=== PATIENT | female | born 1995 | race Caucasian/White ===

== ENCOUNTER 2016-11-21 18:38 | Emergency (ER) | payer SELFPAY ==
[~2016-11-21] VITALS: Ht 172.7 cm; Wt 71.5 kg
[2016-11-21] MEDS ORDERED: TRICTAB PO (19:12)
[2016-11-21 19:13] VITALS: BP 104/55; PULSE 78; RESP 18; TEMP 98.3; O2SAT 98
[2016-11-21 19:32] LABS: BLOOD, URINE MOD (NEG); GLUCOSE,URINE NEG (NEG); KETONE, URINE TRACE mg/dL (NEG); NITRITE,URINE NEG (NEG); PH, URINE 6.5 (5.0-8.5)
[2016-11-21 19:33] LABS: URINE COLOR YELLOW (YELLW/STRAW)
[2016-11-21 19:37] LABS: BACTERIA, URINE MANY /hpf; COMMENT (UR) CULTURE INDICATED; CULTURE IF INDICATED CULTURE INDICATED; SQUAMOUS EPITHELIAL CELL URINE > 8 /hpf (0-5); WBC, URINE INNUM /hpf (0-5)
[2016-11-21 20:12] VITALS: BP 100/46; PULSE 86; RESP 18; O2SAT 99
[2016-11-21] MEDS ORDERED: CEPHALEXIN MONOHYDRATE 500 MG CAP PO ONE (21:00)
--- NOTE | 2016-11-21 21:05 | PD ---
HPI Chief Complaint: Complaint Time Seen by Provider: 21:01 Travel History International Travel<30 days: No Contact w/Intl Traveler<30days: No Traveled to known affect area: No History of Present Illness HPI 21-year-old female presents to the emergency department by private transportation for complaint of one week of dysuria. Patient notes history of frequent urinary tract infections. Symptoms have worsened over the past one to 2 days. No fever or chills. No hematuria. Patient rates discomfort as moderate with urination but mild 2/10 intensity at this time. Patient's last menstrual period was several months ago as she has not had a period since delivering her child 06/2016. Patient breast-feeds daily. Patient denies other concerns or complaints. PFSH Past Medical History Narrative Medical Recurrent urinary tract infections, kidney stones, Diminished Hearing: No Kidney Stones: Yes Immunizations Current: Yes Tetanus Vaccination: Unknown Influenza Vaccination: Yes ?: Not LMP: DELIVERED JUN 28 Past Surgical History Surgical History: No Previous Surgery Social History Alcohol Use: No Tobacco Use: No Substance Use: No Allergies-Medications (Allergen,Severity, Reaction): Coded Allergies: Augmentin (Verified Allergy, Mild, HIVES, 11/21/16) Motrin (Verified Allergy, Mild, HIVES, 11/21/16) Reported Meds & Prescriptions Reported Meds & Active Scripts Active Pyridium (Phenazopyridine HCl) 100 Mg Tab 100 Mg PO Q8H PRN Keflex (Cephalexin) 500 Mg Cap 500 Mg PO Q6H 7 Days Reported ( Vit-Ferrous Fumarate) 1 Tab Tab 1 Tab PO DAILY Review of Systems Except as stated in HPI: all other systems reviewed are Neg General / Constitutional: No: Fever, Chills HENT: No: Congestion Cardiovascular: No: Chest Pain or Discomfort Respiratory: No: Shortness of Breath Gastrointestinal: No: Nausea, Vomiting, Abdominal Pain Genitourinary: Positive: Dysuria, Flank Pain (mild), No: Discharge, Vaginal Bleeding Skin: No Rash Psychiatric: No: Anxiety Endocrine: No: Heat Intolerance Hematologic/Lymphatic: No: Easy Bruising Physical Exam Narrative GENERAL: Well-developed well-nourished female in no acute distress no respiratory distress SKIN: Warm and dry. HEAD: Normocephalic. EYES: No scleral icterus. No injection or drainage. NECK: Supple, trachea midline. No JVD or lymphadenopathy. CARDIOVASCULAR: Regular rate and rhythm without murmurs, gallops, or rubs. RESPIRATORY: Breath sounds equal bilaterally. No accessory muscle use. GASTROINTESTINAL: Abdomen soft, non-tender, nondistended. MUSCULOSKELETAL: No cyanosis, or edema. BACK: Nontender without obvious deformity. Mild right-sided CVA tenderness to percussion that she rates 1-2/10 in intensity. Data Data Last Documented VS Vital Signs Date Time Temp Pulse Resp B/P Pulse Ox O2 Delivery O2 Flow Rate FiO2 11/21/16 21:43 67 18 106/79 99 11/21/16 20:12 Room Air 11/21/16 19:13 98.3 Orders Urinalysis - C+S If Indicated (11/21/16 19:20) Ed Urine Pregnancytest Poc (11/21/16 19:20) Urine Culture (11/21/16 19:15) Cephalexin (Keflex) (11/21/16 21:00) Labs Laboratory Tests Test 11/21/16 19:15 Urine Color YELLOW Urine Turbidity CLOUDY Urine pH 6.5 Urine Specific [place] 1.020 Urine Protein 30 mg/dL Urine Glucose (UA) NEG mg/dL Urine Ketones TRACE mg/dL Urine Occult Blood MOD Urine Nitrite NEG Urine Bilirubin NEG Urine Leukocyte Esterase LARGE Urine RBC 10-14 /hpf Urine WBC INNUM /hpf Urine Squamous Epithelial > 8 /hpf Cells Urine Bacteria MANY /hpf Microscopic Urinalysis Comment CULTURE INDICATED MDM Medical Decision Making Medical Screen Exam Complete: Yes Emergency Medical Condition: Yes Medical Record Reviewed: Yes Interpretation(s) Urinalysis positive leukocyte Estrace positive for white blood cells positive red blood cells positive for bacteria; culture indicated Gelio-tz-sytu hCG: Negative Differential Diagnosis UTI, pyelonephritis, renal colic, Narrative Course Exam consistent with urinary tract infection patient states pain does not remind her of kidney stone pain and denies any fever chills nausea or vomiting. ; Patient informed the urinalysis is abnormal and consistent with infection. Culture is pending. Patient given first dose of antibiotic. Patient states she typically receives Keflex with good resolution of symptoms and urinary tract infections. First dose of Keflex administered. Diagnosis Primary Impression: UTI (urinary tract infection) Referrals: Primary Care Physician call for appointment Patient Instructions: General Instructions Additional Instructions: Increase fluid hydration Take acetaminophen as needed for fever 100.4F or greater Complete course of antibiotic as prescribed Avoid breast-feeding while taking antibiotic therapy Follow-up with your primary care provider call office to schedule follow-up appointment Return to the emergency department for a concerns or change in condition Med/Other Pt SpecificInfo: Prescription(s) given Scripts Phenazopyridine (Pyridium)100 Mg [id number] Mg PO Q8H PRN (DYSURIA) #6 TAB Ref 0 Prov:Marycarmen Moncada MD 11/21/16 Cephalexin (Keflex)500 Mg [id number] Mg PO Q6H 7 Days Ref 0 Prov:Marycarmen Moncaad MD 11/21/16 Disposition: 01 DISCHARGE HOME Condition: Stable Marycarmen Moncada MD Nov 21, 2016 21:05
[2016-11-21] MEDS ORDERED: CEPH-460 PO (21:09)
[2016-11-21] MEDS ORDERED: PHEN0.4T PO (21:09)
[2016-11-21 21:43] VITALS: BP 106/79
== END 2016-11-21 22:23 | disposition home or self-care (01) ==
LOC: PHED 18:38
DX: N39.0 Urinary tract infection, site not specified (principal); B96.20 Unspecified Escherichia coli [E. coli] as the cause of diseases classified elsewhere; B95.1 Streptococcus, group B, as the cause of diseases classified elsewhere
CPT/HCPCS: 81001; 84703; 87077; 87086; 87147; 87186; 99283

== ENCOUNTER 2017-03-11 18:07 | Emergency (ER) | payer SELFPAY ==
[~2017-03-11] VITALS: Ht 172.7 cm; Wt 66.3 kg
[~2017-03-11 18:07] MED LIST: CEPH-460 PO; PHEN0.4T PO; TRICTAB PO
[2017-03-11 18:17] VITALS: BP 115/59; PULSE 94; RESP 16; TEMP 98.6; O2SAT 100
[2017-03-11 18:38] LABS: GLUCOSE,URINE NEG (NEG); KETONE, URINE NEG (NEG); NITRITE,URINE NEG (NEG); PH, URINE 7.5 (5.0-8.5)
[2017-03-11 18:45] LABS: BLOOD, URINE MOD (NEG); URINE COLOR YELLOW (YELLW/STRAW)
--- NOTE | 2017-03-11 18:46 | PD ---
HPI Chief Complaint: Complaint Time Seen by Provider: 18:30 Travel History International Travel<30 days: No Contact w/Intl Traveler<30days: No Traveled to known affect area: No History of Present Illness HPI 21-year-old female presents to the emergency room for evaluation of dysuria, urgency, frequency, and right flank pain the past one and half weeks. Patient states right flank pain is intermittent because she has kidney stones but over the past few days it has become constant, throbbing. It has brought her to tears. Patient has been taking [id number] Azo and it was helping her symptoms at first but it no longer seems to be working. She reports associated nausea but denies fever, chills, and vomiting. No vaginal symptoms. Last menstrual cycle was 5 months ago. Patient states she has not had a menstrual cycles having her baby that she is breast-feeding every day. Denies chronic medical conditions or daily medications. PFSH Past Medical History Diminished Hearing: No Kidney Stones: Yes Immunizations Current: Yes Tetanus Vaccination: < 5 Years Influenza Vaccination: Yes ?: Unknown LMP: SEP 2015 Past Surgical History Surgical History: No Previous Surgery Social History Alcohol Use: No Tobacco Use: No Substance Use: No Allergies-Medications (Allergen,Severity, Reaction): Coded Allergies: Augmentin (Verified Allergy, Mild, HIVES, 11/21/16) Motrin (Verified Allergy, Mild, HIVES, 11/21/16) Reported Meds & Prescriptions Reported Meds & Active Scripts Active Cipro (Ciprofloxacin HCl) 500 Mg Tab 500 Mg PO BID 7 Days Pyridium (Phenazopyridine HCl) 100 Mg Tab 100 Mg PO Q8H PRN Keflex (Cephalexin) 500 Mg Cap 500 Mg PO Q6H 7 Days Reported ( Vit-Ferrous Fumarate) 1 Tab Tab 1 Tab PO DAILY Review of Systems Except as stated in HPI: all other systems reviewed are Neg Physical Exam Narrative GENERAL: Well-nourished, well-developed female in no acute distress. Afebrile. Ambulatory. SKIN: Focused skin assessment warm/dry. HEAD: Normocephalic. EYES: No scleral icterus. No injection or drainage. NECK: Supple, trachea midline. No JVD or lymphadenopathy. CARDIOVASCULAR: Regular rate and rhythm without murmurs, gallops, or rubs. RESPIRATORY: Breath sounds equal bilaterally. No accessory muscle use. BACK: Nontender without obvious deformity. Severe right-sided CVA tenderness. Data Data Last Documented VS Vital Signs Date Time Temp Pulse Resp B/P Pulse Ox O2 Delivery O2 Flow Rate FiO2 03/11/17 18:17 98.6 94 16 115/59 100 Orders Urinalysis - C+S If Indicated (03/11/17 18:14) Ed Urine Pregnancytest Poc (03/11/17 18:41) Urine Culture (03/11/17 18:18) Complete Blood Count With Diff (03/11/17 18:54) Basic Metabolic Panel (Bmp) (03/11/17 18:54) Ct Abd/Pel W/O Iv Contrast (03/11/17 18:54) Mandatory Outpatient Referral (03/11/17 20:13) Labs Laboratory Tests Test 03/11/17 03/11/17 18:18 19:10 Urine Color YELLOW Urine Turbidity CLOUDY Urine pH 7.5 Urine Specific [place] 1.016 Urine Protein 30 mg/dL Urine Glucose (UA) NEG mg/dL Urine Ketones NEG mg/dL Urine Occult Blood MOD Urine Nitrite NEG Urine Bilirubin NEG Urine Leukocyte Esterase LARGE Urine RBC 25-49 /hpf Urine WBC INNUM /hpf Urine WBC Clumps FEW Urine Squamous Epithelial > 8 /hpf Cells Urine Bacteria FEW /hpf Microscopic Urinalysis Comment CULTURE INDICATED White Blood Count 6.3 TH/MM3 Red Blood Count 4.67 MIL/MM3 Hemoglobin 13.4 GM/DL Hematocrit 39.7 % Mean Corpuscular Volume 85.1 FL Mean Corpuscular Hemoglobin 28.7 PG Mean Corpuscular Hemoglobin 33.8 % Concent Red Cell Distribution Width 12.8 % Platelet Count 242 TH/MM3 Mean Platelet Volume 8.0 FL Neutrophils (%) (Auto) 43.8 % Lymphocytes (%) (Auto) 40.1 % Monocytes (%) (Auto) 10.0 % Eosinophils (%) (Auto) 5.0 % Basophils (%) (Auto) 1.1 % Neutrophils # (Auto) 2.8 TH/MM3 Lymphocytes # (Auto) 2.5 TH/MM3 Monocytes # (Auto) 0.6 TH/MM3 Eosinophils # (Auto) 0.3 TH/MM3 Basophils # (Auto) 0.1 TH/MM3 CBC Comment DIFF FINAL Differential Comment Sodium Level 141 MEQ/L Potassium Level 3.6 MEQ/L Chloride Level 105 MEQ/L Carbon Dioxide Level 29.6 MEQ/L Anion Gap 6 MEQ/L Blood Urea Nitrogen 10 MG/DL Creatinine 0.76 MG/DL Estimat Glomerular Filtration 97 ML/MIN Rate Random Glucose 92 MG/DL Calcium Level 9.1 MG/DL [facility] Medical Decision Making Medical Screen Exam Complete: Yes Emergency Medical Condition: Yes Medical Record Reviewed: Yes Differential Diagnosis Pyelonephritis, UTI, kidney stones Narrative Course -year-old female with a history of recurring UTIs and kidney since presents to the emergency room for evaluation of right flank pain, dysuria, urgency, and frequency for the past one week. Patient denies systemic signs of infection. She has been tolerating food without difficulty. Reports constant right flank pain that has increased in intensity over the past week. Patient states she had a 2 cm stone 5 years ago but has never been able to follow-up because of insurance reasons. Physical exam reveals severe right-sided CVA tenderness. Abdomen soft, nontender. Vital signs stable. UA shows evidence of acute infection. CBC and BMP are unremarkable. CT shows a 2 cm stone with right- sided hydronephrosis. Given chronicity of disease, patient is stable for outpatient follow-up. She was discharged with prescription for Cipro for 7 days to cover for pyelonephritis. Previous cultures show susceptibility to Cipro. Mandatory outpatient referral placed. Patient understands and agrees to plan. Diagnosis Primary Impression: UTI (urinary tract infection) Qualified Code: N30.01 - Acute cystitis with hematuria Additional Impression: Nephrolithiasis Referrals: Marko Moon MD Primary Care Physician Patient Instructions: General Instructions, Kidney Stones (ED), Urinary Tract Infection in Women (ED) Additional Instructions: Rest and drink plenty of fluids. Take Cipro as directed, until gone. Take ibuprofen with food as directed, as needed for pain. Follow-up with urologist. Return to the emergency room for worsening symptoms. Med/Other Pt SpecificInfo: Prescription(s) given Scripts Ciprofloxacin (Cipro)500 Mg [id number] Mg PO BID 7 Days Ref 0 Prov:Damaso Lawson MD 03/11/17 Disposition: 01 DISCHARGE HOME Condition: Stable Karina Cole Mar 11, 2017 18:46
[2017-03-11 18:47] LABS: SQUAMOUS EPITHELIAL CELL URINE > 8 /hpf (0-5); WBC, URINE INNUM /hpf (0-5)
[2017-03-11 18:48] LABS: BACTERIA, URINE FEW /hpf; COMMENT (UR) CULTURE INDICATED; CULTURE IF INDICATED CULTURE INDICATED
[2017-03-11 19:18] LABS: AUTOMATED NEUTROPHIL # 2.8 TH/MM3 (1.8-7.7); BASOPHIL # 0.1 TH/MM3 (0-0.2); BASOPHIL % 1.1 % (0.0-2.0); EOSINOPHIL # 0.3 TH/MM3 (0-0.4); HEMATOCRIT 39.7 % (35.0-46.0); HEMO FLAGS DIFF FINAL; LYMPH % 40.1 % (9.0-44.0); LYMPHOCYTE # 2.5 TH/MM3 (1.0-4.8); MEAN CELL VOLUME 85.1 FL (80.0-100.0); MEAN CORPUSCULAR HEMOGLOBIN 28.7 PG (27.0-34.0); MEAN CORPUSCULAR HGB CONC 33.8 % (32.0-36.0); NEUT % 43.8 % (16.0-70.0); PLATELET COUNT 242 TH/MM3 (150-450); RED BLOOD COUNT 4.67 MIL/MM3 (4.00-5.30); RED CELL DISTRIBUTION WIDTH 12.8 % (11.6-17.2); WHITE BLOOD COUNT 6.3 TH/MM3 (4.0-11.0)
[2017-03-11 19:27] LABS: POTASSIUM 3.6 MEQ/L (3.5-5.1)
[2017-03-11 19:30] LABS: BICARBONATE 29.6 MEQ/L (21.0-32.0)
--- NOTE | 2017-03-11 19:42 | RADRPT ---
EXAM DATE/TIME: 03/11/2017 19:12 [facility] COMPARISON: No previous studies available for comparison. INDICATIONS : Right flank pain. Dysuria. ORAL CONTRAST: No oral contrast ingested. RADIATION DOSE: 10.26 CTDIvol (mGy) MEDICAL HISTORY : Renal calculi. SURGICAL HISTORY : None. ENCOUNTER: Initial ACUITY: 2 weeks PAIN SCALE: 5/10 LOCATION: Right flank TECHNIQUE: Volumetric scanning of the abdomen and pelvis was performed. Using automated exposure control and ad justment of the mA and/or kV according to patient size, radiation dose was kept as low as reasonably achievable to obtain optimal diagnostic quality images. DICOM format image data is available electro nically for review and comparison. FINDINGS: LOWER LUNGS: The visualized lower lungs are clear. LIVER: Homogeneous density without lesion. There is no dilation of the biliary tree. No calcified gallston es. SPLEEN: Normal size without lesion. PANCREAS: Within normal limits. KIDNEYS: Normal in size and shape. There is no mass or hydronephrosis on the left. Numerous bilateral renal c alculi measuring 2-5 mm in size. Large calculus in the right renal pelvis measuring 2.2 x 1.5 cm. The re is also slight prominence of the ureter more distally but does appear to taper to normal size. Mor e distal obstructing ureteral calculus is not seen. ADRENAL GLANDS: Within normal limits. VASCULAR: There is no aortic aneurysm. BOWEL/MESENTERY: The stomach, small bowel, and colon demonstrate no acute abnormality. There is no free intraperitone al air or fluid. ABDOMINAL WALL: Within normal limits. RETROPERITONEUM: There is no lymphadenopathy. BLADDER: No wall thickening or mass. REPRODUCTIVE: Within normal limits. INGUINAL: There is no lymphadenopathy or hernia. MUSCULOSKELETAL: Within normal limits for patient age. CONCLUSION: 1. Numerous bilateral nonobstructing renal calculi. 2. Large calculus in the right renal pelvis measuring 22 x 15 mm. There is hydronephrosis of the righ t kidney. Jag Rodriguez MD on March 11, 2017 at 19:36 Board Certified Radiologist. This report was verified electronically.
[2017-03-11] MEDS ORDERED: CIPR-9 PO (20:05)
== END 2017-03-11 20:25 | disposition home or self-care (01) ==
LOC: PHEFT 18:07
DX: N30.01 Acute cystitis with hematuria (principal); B96.20 Unspecified Escherichia coli [E. coli] as the cause of diseases classified elsewhere; N13.2 Hydronephrosis with renal and ureteral calculous obstruction
CPT/HCPCS: 74176; 80048; 81001; 84703; 85025; 87077; 87086; 87186

== ENCOUNTER 2017-03-15 13:18 | Observation (INO) | payer SELFPAY ==
[~2017-03-15] VITALS: Ht 172.7 cm; Wt 67.0 kg
[~2017-03-15 13:18] MED LIST changes: +CIPR-9 PO
[2017-03-15 13:20] VITALS: BP 138/65; PULSE 88; RESP 18; TEMP 98.4; O2SAT 99
[2017-03-15] MEDS ORDERED: SODIUM CHLOR 0.9% 1000 ML INJ 1,000 ML IV ONE (14:25)
[2017-03-15] MEDS ORDERED: SODIUM CHLORIDE 0.9% FLUSH 10 ML FLUSH IVF PRN (14:30)
[2017-03-15] MEDS ORDERED: MORPHINE SULFATE 4 MG/ML INJ IV PUSH ONE (14:30)
[2017-03-15] MEDS ORDERED: ONDANSETRON HCL 4 MG/2 ML VIAL IVP ONE (14:30)
--- NOTE | 2017-03-15 14:30 | PD ---
HPI Chief Complaint: Flank/Kidney Pain Time Seen by Provider: 14:28 Travel History International Travel<30 days: No Contact w/Intl Traveler<30days: No Traveled to known affect area: No History of Present Illness HPI 21-year-old female presents to the emergency department for reevaluation of right flank pain. Patient was seen 4 days ago at [facility] in the emergency department. She was found to have a large 22 mm x 15 mm calculus in the right renal pelvis with hydronephrosis of the right kidney. She is also found to have a urinary tract infection was discharged prescription for ciprofloxacin. Patient states she was not discharged with any pain medication at that time. Since then, the pain has become more severe. She also states that she was vomiting yesterday. The patient was given a mandatory outpatient referral for urology, but states she has tried to call and follow-up, but has been unable to at this time. The patient denies . She states that she did have dysuria, but that has resolved since being on the antibiotic. PFSH Past Medical History Diminished Hearing: No Kidney Stones: Yes Immunizations Current: Yes ?: Not LMP: 10/05 Social History Alcohol Use: No Tobacco Use: No Substance Use: No Allergies-Medications (Allergen,Severity, Reaction): Coded Allergies: Augmentin (Verified Allergy, Mild, HIVES, 03/15/17) Motrin (Verified Allergy, Mild, HIVES, 03/15/17) Reported Meds & Prescriptions Reported Meds & Active Scripts Active Cipro (Ciprofloxacin HCl) 500 Mg Tab 500 Mg PO BID 7 Days Pyridium (Phenazopyridine HCl) 100 Mg Tab 100 Mg PO Q8H PRN Keflex (Cephalexin) 500 Mg Cap 500 Mg PO Q6H 7 Days Reported ( Vit-Ferrous Fumarate) 1 Tab Tab 1 Tab PO DAILY Review of Systems Except as stated in HPI: all other systems reviewed are Neg HENT: Positive: Gingival Bleeding Physical Exam Narrative GENERAL: Well-nourished, well-developed female patient, ambulatory. Afebrile. SKIN: Focused skin assessment warm/dry. HEAD: Normocephalic. Atraumatic. EYES: No scleral icterus. No injection or drainage. NECK: Supple, trachea midline. No JVD or lymphadenopathy. CARDIOVASCULAR: Regular rate and rhythm without murmurs, gallops, or rubs. RESPIRATORY: Breath sounds equal bilaterally. No accessory muscle use. Lungs sounds are Clear to auscultation. GASTROINTESTINAL: Abdomen soft, non-tender, nondistended. MUSCULOSKELETAL: No cyanosis, or edema. BACK: Nontender without obvious deformity. Right CVA tenderness. Data Data Last Documented VS Vital Signs Date Time Temp Pulse Resp B/P Pulse Ox O2 Delivery O2 Flow Rate FiO2 03/15/17 14:30 20 03/15/17 13:20 98.4 88 138/65 99 Room Air Orders Complete Blood Count With Diff (03/15/17 14:25) Basic Metabolic Panel (Bmp) (03/15/17 14:25) Urinalysis - C+S If Indicated (03/15/17 14:25) Ed Urine Pregnancytest Poc (03/15/17 14:25) Ecg Monitoring (03/15/17 14:25) Iv Access Insert/Monitor (03/15/17 14:25) Ondansetron Inj (Zofran Inj) (03/15/17 14:30) Sodium Chloride 0.9% Flush (Ns Flush) (03/15/17 14:30) Sodium Chlor 0.9% 1000 Ml Inj (Ns 1000 M (03/15/17 14:25) Morphine Inj (Morphine Inj) (03/15/17 14:30) Urine Culture (03/15/17 15:00) Admit Order (Ed Use Only) (03/15/17 16:34) Consult Urology (03/15/17 ) Labs Laboratory Tests Test 03/15/17 15:00 White Blood Count 6.0 TH/MM3 Red Blood Count 4.57 MIL/MM3 Hemoglobin 13.2 GM/DL Hematocrit 40.1 % Mean Corpuscular Volume 87.8 FL Mean Corpuscular Hemoglobin 29.0 PG Mean Corpuscular Hemoglobin 33.0 % Concent Red Cell Distribution Width 13.7 % Platelet Count 227 TH/MM3 Mean Platelet Volume 7.8 FL Neutrophils (%) (Auto) 51.7 % Lymphocytes (%) (Auto) 34.7 % Monocytes (%) (Auto) 7.8 % Eosinophils (%) (Auto) 5.0 % Basophils (%) (Auto) 0.8 % Neutrophils # (Auto) 3.1 TH/MM3 Lymphocytes # (Auto) 2.1 TH/MM3 Monocytes # (Auto) 0.5 TH/MM3 Eosinophils # (Auto) 0.3 TH/MM3 Basophils # (Auto) 0.1 TH/MM3 CBC Comment DIFF FINAL Differential Comment Urine Color YELLOW Urine Turbidity HAZY Urine pH 7.0 Urine Specific [place] 1.017 Urine Protein 30 mg/dL Urine Glucose (UA) NEG mg/dL Urine Ketones NEG mg/dL Urine Occult Blood TRACE Urine Nitrite NEG Urine Bilirubin NEG Urine Urobilinogen LESS THAN 2.0 MG/DL Urine Leukocyte Esterase LARGE Urine RBC 22 /hpf Urine WBC 107 /hpf Urine WBC Clumps FEW Urine Hyaline Casts 5 /lpf Urine Mucus FEW /lpf Microscopic Urinalysis Comment CULTURE INDICATED Sodium Level 140 MEQ/L Potassium Level 4.2 MEQ/L Chloride Level 106 MEQ/L Carbon Dioxide Level 28.3 MEQ/L Anion Gap 6 MEQ/L Blood Urea Nitrogen 10 MG/DL Creatinine 0.79 MG/DL Estimat Glomerular Filtration 93 ML/MIN Rate Random Glucose 83 MG/DL Calcium Level 9.0 MG/DL MDM Medical Decision Making Medical Screen Exam Complete: Yes Emergency Medical Condition: Yes Medical Record Reviewed: Yes Differential Diagnosis Nephrolithiasis versus UTI versus infected stone Narrative Course 21-year-old female presents to the emergency department for worsening right flank pain with vomiting since being seen 4 days ago. I reviewed the previous records, the patient had a large calculus, 22 mm x 15 mm in the right renal pelvis with hydronephrosis of the right kidney. She is unable to follow-up with urology. IV access was established. CBC, BMP, UA, UPT are ordered and pending. Patient is given normal saline 1 L IV bolus, Zofran 4 mg IV, morphine 4 mg IV. CBC shows no acute abnormality. BMP is unremarkable. UA shows large leukocyte esterase, 107 WBC, few wbc clumps. UPT is negative. I spoke to Dr. Moon, urologist. Dr. Abdi accepted admission. He will start patient on Rocephin for UTI. Diagnosis Primary Impression: Nephrolithiasis Additional Impression: UTI (urinary tract infection) Qualified Code: N30.01 - Acute cystitis with hematuria Admitting Information Admitting Physician Requests: Dolores Cadet Mar 15, 2017 14:29
[2017-03-15 15:14] LABS: AUTOMATED NEUTROPHIL # 3.1 TH/MM3 (1.8-7.7); BASOPHIL # 0.1 TH/MM3 (0-0.2); BASOPHIL % 0.8 % (0.0-2.0); EOSINOPHIL # 0.3 TH/MM3 (0-0.4); HEMATOCRIT 40.1 % (35.0-46.0); HEMO FLAGS DIFF FINAL; LYMPH % 34.7 % (9.0-44.0); LYMPHOCYTE # 2.1 TH/MM3 (1.0-4.8); MEAN CELL VOLUME 87.8 FL (80.0-100.0); MONO % 7.8 % (0.0-8.0); NEUT % 51.7 % (16.0-70.0); PLATELET COUNT 227 TH/MM3 (150-450); RED BLOOD COUNT 4.57 MIL/MM3 (4.00-5.30); RED CELL DISTRIBUTION WIDTH 13.7 % (11.6-17.2)
[2017-03-15 15:38] LABS: BICARBONATE 28.3 MEQ/L (21.0-32.0); POTASSIUM 4.2 MEQ/L (3.5-5.1)
[2017-03-15 16:21] LABS: BLOOD, URINE TRACE (NEG); COMMENT (UR) CULTURE INDICATED; CULTURE IF INDICATED CULTURE INDICATED; GLUCOSE,URINE NEG (NEG); HYALINE CAST, URINE 5 /lpf (RARE); KETONE, URINE NEG (NEG); MUCUS URINE FEW /lpf (OCC); NITRITE,URINE NEG (NEG); URINE COLOR YELLOW (YELLW/STRAW)
[2017-03-15 17:00] VITALS: BP 112/56; PULSE 70; RESP 19; O2SAT 97
[2017-03-15] MEDS ORDERED: cefTRIAXone 1,000 MG/NS 100 ML IV SCH ×2 (17:00)
--- NOTE | 2017-03-15 18:28 | HHI.HP ---
HPI Service [facility] Hospitalists Primary Care Physician No Primary Care Physician Admission Diagnosis large calculus right renal pelvis; UTI Diagnoses: Chief Complaint: Right flank pain Travel History International Travel<30 Days: No Contact w/Intl Traveler <30 Da: No Traveled to Known Affected Are: No History of Present Illness Written by Dariel Pagan, acting as scribe for Dr. Cayla Abdi on 03/15/17 at 18:27. Mrs. Melvin is 21 yo, with history of kidney stone present since the age of 16 and frequent UTI's. She gave in June of 2016 and has been breast feeding since then. She denied menstrual period since September,. Mrs. Melvin went to [facility] on 03/11/17 for flank pain. Imaging studies indicated the presence of a 22x15 mm calculus in the right renal pelvis and hydronephrosis of the right kidney. She was also found to have a urinary tract infection (due to e. coli). She was received a prescription for ciprofloxacin and referred to outpatient urology; pain medication was not prescribed. Since that time her pain was continued to worsen. She had a bout of emesis on 03/14/17 and had nausea on 03/15/17. As her symptoms were not improving she came to [facility] ED for further evaluation and treatment. She denied fever, body aches (other than noted above) , chills. Dysuria was reported in the day before her current visit, but was reportedly improved with the ciprofloxacin. Review of Systems Except as stated in HPI: all other systems reviewed are Neg Past Family Social History Past Medical History Kidney stone first diagnosed at age 16. Frequent UTI's Past Surgical History No previous surgeries Reported Medications Reported Meds & Active Scripts Active Cipro (Ciprofloxacin HCl) 500 Mg Tab 500 Mg PO BID 7 Days Pyridium (Phenazopyridine HCl) 100 Mg Tab 100 Mg PO Q8H PRN Keflex (Cephalexin) 500 Mg Cap 500 Mg PO Q6H 7 Days Reported ( Vit-Ferrous Fumarate) 1 Tab Tab 1 Tab PO DAILY Allergies: Coded Allergies: Augmentin (Verified Allergy, Mild, HIVES, 03/15/17) Motrin (Verified Allergy, Mild, HIVES, 03/15/17) Active Ordered Medications Current Medications Medications (Trade) Dose Ordered Sig/Pelon Route Start Time Stop Time Status Last Admin Sodium Chloride 2 ml 2 ml UNSCH PRN IVF 03/15/17 14:30 (Rocephin Inj/NS Inj) 100 ml @ 200 mls/hr Q24H IV 03/15/17 17:00 03/15/17 17:23 Family History Breast cancer: Mother (diagnosed age 38), maternal grandmother (diagnosed in 2015) and paternal great aunt. Social History Denied nicotine use/history. Alcohol use was denied. Recreational/illicit drug use was denied. Pt is breast feeding at this time. Physical Exam Vital Signs Vital Signs Date Time Temp Pulse Resp B/P Pulse Ox O2 Delivery O2 Flow Rate FiO2 03/15/17 17:00 70 19 112/56 97 Room Air 03/15/17 14:30 20 03/15/17 13:20 98.4 88 18 138/65 99 Room Air Physical Exam GENERAL: This is a well-nourished, well-developed patient, in no apparent distress. SKIN: No rashes, ecchymoses or lesions. Cool and dry. Tattoos noted on both upper extremities. HEAD: Atraumatic. Normocephalic. EYES: Pupils equal round and reactive. Extraocular motions intact. No scleral icterus. No injection or drainage. ENT: Nose without bleeding or purulent drainage. Throat without erythema. Airway patent. NECK: Trachea midline. No lymphadenopathy. Supple and nontender. CARDIOVASCULAR: Regular rate and rhythm without murmurs, gallops, or rubs. RESPIRATORY: Clear to auscultation. Breath sounds equal bilaterally. No wheezes , rales, or rhonchi. GASTROINTESTINAL: Abdomen soft, non-tender, nondistended. No hepato- splenomegaly or guarding. MUSCULOSKELETAL: Extremities without clubbing, cyanosis, or edema. No joint tenderness, effusion, or edema noted. NEUROLOGICAL: Awake and alert. Cranial nerves II through XII intact. Motor and sensory grossly within normal limits. Five out of 5 muscle strength in all muscle groups. Speech was clear and fluent. Laboratory Laboratory Tests Test 03/15/17 15:00 White Blood Count 6.0 Red Blood Count 4.57 Hemoglobin 13.2 Hematocrit 40.1 Mean Corpuscular Volume 87.8 Mean Corpuscular Hemoglobin 29.0 Mean Corpuscular Hemoglobin 33.0 Concent Red Cell Distribution Width 13.7 Platelet Count 227 Mean Platelet Volume 7.8 Neutrophils (%) (Auto) 51.7 Lymphocytes (%) (Auto) 34.7 Monocytes (%) (Auto) 7.8 Eosinophils (%) (Auto) 5.0 Basophils (%) (Auto) 0.8 Neutrophils # (Auto) 3.1 Lymphocytes # (Auto) 2.1 Monocytes # (Auto) 0.5 Eosinophils # (Auto) 0.3 Basophils # (Auto) 0.1 CBC Comment DIFF FINAL Differential Comment Urine Color YELLOW Urine Turbidity HAZY Urine pH 7.0 Urine Specific [place] 1.017 Urine Protein 30 Urine Glucose (UA) NEG Urine Ketones NEG Urine Occult Blood TRACE Urine Nitrite NEG Urine Bilirubin NEG Urine Urobilinogen LESS THAN 2.0 Urine Leukocyte Esterase LARGE Urine RBC 22 Urine WBC 107 Urine WBC Clumps FEW Urine Hyaline Casts 5 Urine Mucus FEW Microscopic Urinalysis Comment CULTURE INDICATED Sodium Level 140 Potassium Level 4.2 Chloride Level 106 Carbon Dioxide Level 28.3 Anion Gap 6 Blood Urea Nitrogen 10 Creatinine 0.79 Estimat Glomerular Filtration 93 Rate Random Glucose 83 Calcium Level 9.0 Date/Time Procedure Status Source Growth 03/15/17 15:00 Urine Culture Received Urine Clean Catch Pending Result Diagram: 03/15/17 1500 03/15/17 1500 Assessment and Plan Problem List: (1) UTI (urinary tract infection) ICD Code: N39.0 Status: Acute (2) Nephrolithiasis ICD Code: N20.0 Status: Acute Assessment and Plan Mrs. Melvin is 21 yo, with history of kidney stone present since the age of 16 and frequent UTI's. She gave in June of 2016 and has been breast feeding since then. She denied menstrual period since September,. UTI Nephrolithiasis Nausea -Admit to Hospitalist service -Urology consulted -Rocephin 1 G IV q 24 -Pain management PRN -Zofran -Discontinued home Cipro This note was transcribed by pam Pagan. I, Dr. Rashawn Abdi personally performed the history, physical exam, and medical decision making; and confirmed the accuracy of the information in the transcribed note. Authenticated by Dr. Rashawn Abdi on 03/15/17 at 19:01. Discussed Condition With Pt, ED team. Problem Qualifiers (1) UTI (urinary tract infection): Qualified Code: N30.01 - Acute cystitis with hematuria Dariel Pagan Jr. Mar 15, 2017 18:28 Rashawn Abdi MD Mar 15, 2017 19:01
[2017-03-15] MEDS ORDERED: ACETAMINOPHEN 325 MG TAB PO PRN ×2 (18:30)
[2017-03-15] MEDS ORDERED: SENNOSIDES 8.6 MG TAB PO PRN (18:30)
[2017-03-15] MEDS ORDERED: BISACODYL 10 MG SUPP RECTAL PRN (18:30)
[2017-03-15] MEDS ORDERED: MAGNESIUM HYDROXIDE SUSP 30 ML CUP PO PRN (18:30)
[2017-03-15] MEDS ORDERED: ACETAMINOPHEN/HYDROcodone 325 MG/7.5 MG TAB PO PRN (18:30)
[2017-03-15] MEDS ORDERED: SODIUM CHLORIDE 0.9% FLUSH 10 ML FLUSH IV FLUSH PRN (18:30)
[2017-03-15] MEDS ORDERED: LACTULOSE SYRUP 20 GM/30 ML CUP PO PRN (18:30)
[2017-03-15] MEDS ORDERED: NALOXONE HCL 0.4 MG/ML AMP IV PRN (18:30)
[2017-03-15] MEDS ORDERED: ACETAMINOPHEN/HYDROcodone 325 MG/5 MG TAB PO PRN (18:30)
[2017-03-15 19:10] VITALS: BP 123/61; PULSE 75; RESP 16; O2SAT 99
[2017-03-15] MEDS: SODIUM CHLORIDE 0.9% FLUSH 10 ML FLUSH IV FLUSH SCH ×2 (21:09→22:11)
[2017-03-15 21:43] VITALS: BP 111/53; PULSE 61; RESP 16; TEMP 98.3; O2SAT 98
[2017-03-16] VITALS (7 sets, daily range): BP systolic 89–109; BP diastolic 50–65; PULSE 64–81; RESP 14–20; TEMP 97.6–98.7; O2SAT 69–100
--- NOTE | 2017-03-16 10:17 | PD.CONS ---
HPI Service Urology Consult Requested By Reason for Consult Obstructing right renal calculus Primary Care Physician No Primary Care Physician Diagnosis: (1) UTI (urinary tract infection) ICD Code: N39.0 (2) Nephrolithiasis ICD Code: N20.0 History of Present Illness 21 year-old female with history of a renal calculus since the age of 16. Patient presented to [place] emergency [facility] [place] on March 11 of this year with new onset right flank pain. A CT scan study was performed which demonstrated a 22 mm right renal pelvis calculus with hydronephrosis. Patient also was noted to have urinary tract infection. She was treated and released and presented back to the emergency room at [facility] on March 15 with worsening symptoms. Patient was admitted for analgesic support and a urology consult placed. At the time of consultation the patient reported that her pain was well controlled was not in any acute distress. She was afebrile. I reviewed the actual CT scan images and concur with the radiologist impression. Also noted on CT scan were multiple bilateral small renal calculi measuring between 2 and 5 mm. Review of Systems Constitutional: DENIES: Fever Genitourinary: COMPLAINS OF: Dysuria, DENIES: Hematuria Musculoskeletal: COMPLAINS OF: Back pain (right flank) Except as stated in HPI: all other systems reviewed are Neg Past Family Social History Past Medical History Renal lithiasis Recurrent UTIs Past Surgical History Denies major surgery Reported Medications Refer to EMR Allergies: Coded Allergies: Penicillin (Verified Allergy, Intermediate, Hives, 03/15/17) Augmentin (Verified Allergy, Mild, HIVES, 03/15/17) Motrin (Verified Allergy, Mild, HIVES, 03/15/17) Active Ordered Medications Refer to EMR Family History Family history positive for breast cancer Social History Denies tobacco, alcohol or intravenous drug abuse Physical Exam Vital Signs Date Time Temp Pulse Resp B/P Pulse Ox O2 Delivery O2 Flow Rate FiO2 03/16/17 09:39 97.8 76 18 102/65 99 03/16/17 09:08 97.6 70 16 101/54 95 03/16/17 05:25 69 16 108/51 99 03/16/17 05:13 98.7 81 20 89/50 69 03/16/17 02:05 67 16 95/54 100 03/15/17 21:43 98.3 61 16 111/53 98 03/15/17 19:10 75 16 123/61 99 Room Air 03/15/17 17:00 70 19 112/56 97 Room Air 03/15/17 14:30 20 03/15/17 13:20 98.4 88 18 138/65 99 Room Air Physical Exam GENERAL: This is a well-nourished, well-developed patient, in no apparent distress. SKIN: No rashes, ecchymoses or lesions. Cool and dry. HEAD: Atraumatic. Normocephalic. No temporal or scalp tenderness. EYES: Pupils equal round and reactive. Extraocular motions intact. No scleral icterus. No injection or drainage. ENT: Nose without bleeding, purulent drainage or septal hematoma. Throat without erythema, tonsillar hypertrophy or exudate. Uvula midline. Airway patent. NECK: Trachea midline. No JVD or lymphadenopathy. Supple, nontender, no meningeal signs. CARDIOVASCULAR: Regular rate and rhythm without murmurs, gallops, or rubs. RESPIRATORY: Clear to auscultation. Breath sounds equal bilaterally. No wheezes , rales, or rhonchi. GASTROINTESTINAL: Abdomen soft, non-tender, nondistended. No hepato-splenomegaly , or palpable masses. No guarding. GENITOURINARY: No CVA tenderness MUSCULOSKELETAL: Extremities without clubbing, cyanosis, or edema. No joint tenderness, effusion, or edema noted. No calf tenderness. Negative Homans sign bilaterally. NEUROLOGICAL: Awake and alert. Cranial nerves II through XII intact. Motor and sensory grossly within normal limits. Five out of 5 muscle strength in all muscle groups. Normal speech. Lab results reviewed: Yes Laboratory Tests Test 03/15/17 15:00 White Blood Count 6.0 Red Blood Count 4.57 Hemoglobin 13.2 Hematocrit 40.1 Mean Corpuscular Volume 87.8 Mean Corpuscular Hemoglobin 29.0 Mean Corpuscular Hemoglobin 33.0 Concent Red Cell Distribution Width 13.7 Platelet Count 227 Mean Platelet Volume 7.8 Neutrophils (%) (Auto) 51.7 Lymphocytes (%) (Auto) 34.7 Monocytes (%) (Auto) 7.8 Eosinophils (%) (Auto) 5.0 Basophils (%) (Auto) 0.8 Neutrophils # (Auto) 3.1 Lymphocytes # (Auto) 2.1 Monocytes # (Auto) 0.5 Eosinophils # (Auto) 0.3 Basophils # (Auto) 0.1 CBC Comment DIFF FINAL Differential Comment Urine Color YELLOW Urine Turbidity HAZY Urine pH 7.0 Urine Specific [place] 1.017 Urine Protein 30 Urine Glucose (UA) NEG Urine Ketones NEG Urine Occult Blood TRACE Urine Nitrite NEG Urine Bilirubin NEG Urine Urobilinogen LESS THAN 2.0 Urine Leukocyte Esterase LARGE Urine RBC 22 Urine WBC 107 Urine WBC Clumps FEW Urine Hyaline Casts 5 Urine Mucus FEW Microscopic Urinalysis Comment CULTURE INDICATED Sodium Level 140 Potassium Level 4.2 Chloride Level 106 Carbon Dioxide Level 28.3 Anion Gap 6 Blood Urea Nitrogen 10 Creatinine 0.79 Estimat Glomerular Filtration 93 Rate Random Glucose 83 Calcium Level 9.0 Date/Time Procedure Status Source Growth 03/15/17 15:00 Urine Culture Received Urine Clean Catch Pending Result Diagram: 03/15/17 1500 03/15/17 1500 Personally reviewed images: Yes Assessment and Plan Assessment and Plan Urologic impression: #1 right hydronephrosis secondary to an obstructing 2.2 cm right renal pelvis calculus #2 bilateral renal calculi measuring between 2 and 5 mm Recommendations: #1 keep patient nothing by mouth #2 patient will be brought to the operating suite this morning for cystoscopy, right retrograde pyelogram and right ureteral stent placement #3 patient will eventually require a right percutaneous nephrolithotomy Problem Qualifiers (1) UTI (urinary tract infection): Qualified Code: N30.01 - Acute cystitis with hematuria Marko Moon MD Mar 16, 2017 10:17
[2017-03-16] MEDS ORDERED: IOHEXOL 350 MG/ML 50 ML BTL (for RAD DIAG) ONE (10:47)
--- NOTE | 2017-03-16 11:06 | PD.OP ---
Operative Report Date of Surgery: Mar 16, 2017 Preoperative Diagnosis: (1) Renal calculus, right Postoperative Diagnosis: (1) Renal calculus, right Procedure: Cystoscopy, right retrograde pyelogram and right ureteral stent placement Anesthesia: General Surgeon: Marko Moon Transit Department Clerk(s): None Operation and Findings: Indication for procedure: 21-year-old female with right hydronephrosis and flank pain secondary to a 2.2 cm right pelvic ureteral calculus who presents now for cystoscopy, right retrograde pyelogram and right ureteral stent placement. Operative procedure in detail: Patient was brought to the operating suite and placed supine on the cystoscopy table. She was next placed under general endotracheal anesthesia. She was then repositioned in the dorsolithotomy position and prepped and draped in normal sterile fashion. After an appropriate timeout was undertaken have proceeded with cystoscopic evaluation utilizing the rigid cystoscope with the 30 lens and 22 Dominican sheath. Both right and left ureteral orifices were in correct anatomic position. There was clear reflux on the left there was no reflux on the right side. A 0.35 nitinol wire was then passed up the right ureter negotiated around the right renal pelvic calculus. I next proceeded with passing a 6 Dominican open-ended ureteral catheter over wire and the wire was withdrawn. A retrograde pyelogram study was performed to outline the collecting system. The wire was reintroduced and the open-ended catheter was exchanged for a 6 Dominican 24 cm double-J stent. Once the stent was in proper position the trailing string was removed. The bladder was drained of all irrigant fluid and the cystoscope withdrawn. The patient tolerated the procedures without complications post transfer to the PACU in satisfactory condition. It is anticipated that the patient will be able to be discharged home soon with instructions to follow up with me at my office to make arrangements for a right percutaneous nephrolithotomy. Marko Moon MD Mar 16, 2017 11:06
[2017-03-16] MEDS ORDERED: PERC5TAB12 PO (11:15)
[2017-03-16] MEDS ORDERED: DO NOT ADM ANY ANTICOAGULANT DRUGS PRN (11:17)
[2017-03-16] MEDS ORDERED: *ONDANSETRON 4 MG VIAL PERIprocedural Use ONLY ONE (11:47)
[2017-03-16] MEDS ORDERED: PROPOFOL 200 MG/20 ML AMP IV ONE (13:03)
[2017-03-16] MEDS ORDERED: ONDANSETRON HCL 4 MG/2 ML VIAL IV PUSH ONE (13:04)
[2017-03-16] MEDS ORDERED: CEPH500C PO (14:27)
--- NOTE | 2017-03-16 14:27 | HHI.DCPOC ---
Discharge Care Plan Diagnosis: (1) Nephrolithiasis (2) UTI (urinary tract infection) (3) Renal calculus, right Goals to Promote Your Health * To prevent worsening of your condition and complications * To maintain your health at the optimal level Directions to Meet Your Goals Take your medications as prescribed Follow your dietary instruction Follow activity as directed Keep your appointments as scheduled Take your immunizations and boosters as scheduled If your symptoms worsen call your PCP, if no PCP go to Urgent Care Center or Emergency Room Smoking is Dangerous to Your Health. Avoid second hand smoke Call the 24-hour hour crisis hotline for domestic abuse at Rashawn Abdi MD Mar 16, 2017 14:27
--- NOTE | 2017-03-16 14:31 | HHI.PR ---
Subjective Remarks Follow-up UTI, renal stone. Patient status post cystoscopy today. She is having some mild discomfort from the procedure, but states that she feels much better overall. She feels that she is ready to go home. Objective Vitals Vital Signs Date Time Temp Pulse Resp B/P Pulse Ox O2 Delivery O2 Flow Rate FiO2 03/16/17 12:10 94 Nasal Cannula 2.00 03/16/17 12:06 97.8 64 14 109/60 95 03/16/17 11:30 93 22 131/75 98 Room Air 03/16/17 11:18 97.9 90 15 100/55 95 Room Air 03/16/17 09:39 97.8 76 18 102/65 99 03/16/17 09:08 97.6 70 16 101/54 95 03/16/17 05:25 69 16 108/51 99 03/16/17 05:13 98.7 81 20 89/50 69 03/16/17 02:05 67 16 95/54 100 03/15/17 21:43 98.3 61 16 111/53 98 03/15/17 19:10 75 16 123/61 99 Room Air 03/15/17 17:00 70 19 112/56 97 Room Air 03/15/17 14:30 20 I/O 03/15/17 03/15/17 03/15/17 03/16/17 03/16/17 03/16/17 07:00 15:00 23:00 07:00 15:00 23:00 Intake Total 500 ml 700 ml Output Total 0 ml Balance 500 ml 700 ml Intake Oral 500 ml Other 700 ml Output Estimated Blood Loss 0 ml # Voids 1 Result Diagram: 03/15/17 1500 03/15/17 1500 Objective Remarks Patient examined in the presence of the nurse. General: No acute distress. Heart: Regular rate and rhythm. No murmur. Lungs: Clear to auscultation bilaterally. No wheezes, rales, or rhonchi. Breathing is nonlabored. Abdomen: Soft, nontender, nondistended. Extremities: No lower extremity edema. Psych: Alert and oriented. Procedures 03/16/17 cystoscopy with ureteral stent placement Urinary Catheter: No Vascular Central Line Catheter: No A/P Problem List: (1) UTI (urinary tract infection) ICD Code: N39.0 Status: Acute (2) Nephrolithiasis ICD Code: N20.0 Status: Acute Assessment and Plan 1. UTI, nephrolithiasis: Status post cystoscopy with ureteral stent placement. Continue antibiotics. Prescription given for Keflex as patient is penicillin allergic and is breast-feeding. Follow-up with urology in 1 week. Discharge Planning Discharge home in stable condition. Follow-up with urology. Regular diet as tolerated. Activity as tolerated. Patient was counseled regarding medication use while breast-feeding. Problem Qualifiers (1) UTI (urinary tract infection): Qualified Code: N30.01 - Acute cystitis with hematuria Rashawn Abdi MD Mar 16, 2017 14:31
== END 2017-03-16 16:39 | disposition home or self-care (01) ==
LOC: NEPD 13:18 → NEDA 16:36 → NEPGCP 21:43
PROVIDERS: ADMIT Family Medicine; ATTEND Family Medicine
PROC: 0T768DZ Dilation of Right Ureter with Intraluminal Device, Via Natural or Artificial Opening Endoscopic (ICD-10-PCS; principal; 2017-03-15)
DX: N13.2 Hydronephrosis with renal and ureteral calculous obstruction (principal); N39.0 Urinary tract infection, site not specified
CPT/HCPCS: 01922; 52332; 74420; 80048; 81001; 84703; 85025; 87086; 96361; 96374; 96375; 99285; C1769; C2617; G0378; J0696; J2270; J2405; J3010; J7030; Q9967

== ENCOUNTER → 2017-05-28 | Outpatient (CLI) | payer MEDICAID ==
[~2017-05-28] MED LIST changes: -CEPH-460 PO; -CIPR-9 PO; +LEVA500T20 PO; +PERC5TAB12 PO; -PHEN0.4T PO; -TRICTAB PO; +ZOFR4TAB3 SL
[2017-05-28 12:05] LABS: AUTOMATED NEUTROPHIL # 2.6 TH/MM3 (1.8-7.7); BASOPHIL # 0.1 TH/MM3 (0-0.2); BASOPHIL % 1.1 % (0.0-2.0); EOSINOPHIL # 0.4 TH/MM3 (0-0.4); EOSINOPHIL % 6.7 % (0.0-4.0); HEMATOCRIT 39.6 % (35.0-46.0); HEMO FLAGS DIFF FINAL; LYMPH % 37.6 % (9.0-44.0); LYMPHOCYTE # 2.1 TH/MM3 (1.0-4.8); MEAN CELL VOLUME 87.2 FL (80.0-100.0); MEAN CORPUSCULAR HEMOGLOBIN 29.1 PG (27.0-34.0); MEAN CORPUSCULAR HGB CONC 33.4 % (32.0-36.0); MONO % 8.2 % (0.0-8.0); NEUT % 46.4 % (16.0-70.0); PLATELET COUNT 243 TH/MM3 (150-450); RED BLOOD COUNT 4.54 MIL/MM3 (4.00-5.30); RED CELL DISTRIBUTION WIDTH 13.5 % (11.6-17.2); WHITE BLOOD COUNT 5.6 TH/MM3 (4.0-11.0)
[2017-05-28 12:27] LABS: ANION GAP 6 MEQ/L (5-15); AST (GOT) 7 U/L (16-38); BICARBONATE 30.4 MEQ/L (21.0-32.0); BLOOD UREA NITROGEN 13 MG/DL (7-18); CHLORIDE 105 MEQ/L (98-107); GLOMERULAR FILTRATION RATE 105 ML/MIN (>89); GLUCOSE,FASTING 85 MG/DL (74-99); POTASSIUM 3.9 MEQ/L (3.5-5.1); SODIUM (NA) 141 MEQ/L (136-145)
[2017-05-28 12:30] LABS: ALKALINE PHOSPHATASE 84 U/L (45-117); ALT (GPT) 17 U/L (9-42); TOTAL BILIRUBIN ADULT 0.4 MG/DL (0.2-1.0)
--- NOTE | 2017-05-28 16:20 | EKG ---
Date Performed: 05/28/2017 Time Performed: 12:08:05 PTAGE: 21 years EKG: Sinus rhythm WITH SINUS ARRHYTHMIA NON-SPECIFIC ST/T WAVE CHANGES NO PREVIOUS TRACING DOCTOR: Johnathon Lawson Interpretating Date/Time 05/28/2017 16:19:44
== END ==
LOC: CPRE 11:21
PROVIDERS: ATTEND Urology
DX: Z01.812 Encounter for preprocedural laboratory examination (principal); Z01.810 Encounter for preprocedural cardiovascular examination; N20.0 Calculus of kidney
CPT/HCPCS: 36415; 80053; 85025; 93005

== ENCOUNTER 2017-05-31 07:19 | Day surgery (SDC) | payer MEDICAID ==
[2017-05-31] VITALS (7 sets, daily range): BP systolic 103–123; BP diastolic 56–79; PULSE 64–93; RESP 16–20; TEMP 97.6–98.8; O2SAT 95–99
[~2017-05-31] VITALS: Ht 172.7 cm; Wt 70.0 kg
[2017-05-31] MEDS ORDERED: DIAZEPAM 10 MG TAB ONE (08:06)
[2017-05-31] MEDS: SODIUM CHLORIDE 0.9% 1000 ML IV SCH ×2 (08:11→15:24)
[2017-05-31 08:17] LABS: APTT (PATIENT) 29.1 SEC (24.3-30.1); PROTHROMBIN TIME - PATIENT 11.4 SEC (9.8-11.6)
[2017-05-31] MEDS ORDERED: LEVOFLOXACIN 500 MG PREMIX 100 ML - nephrostomy tube insertion or exchange IV SCH (08:30)
[2017-05-31] MEDS ORDERED: MIDAZOLAM HCL 2 MG/2 ML VIAL ONE ×3 (09:09→09:42)
[2017-05-31] MEDS ORDERED: SODIUM BICARBONATE 8.4% INJ 50 ML ONE (09:20)
[2017-05-31] MEDS ORDERED: IOHEXOL 350 MG/ML 50 ML BTL (for RAD DIAG) OTHER ONE (10:00)
--- NOTE | 2017-05-31 10:12 | PD.RAD ---
Post Procedure Progress Note Pre Procedure Diagnosis: (1) Renal calculus, right (2) Nephrolithiasis (3) UTI (urinary tract infection) Post Procedure Diagnosis: (1) Renal calculus, right (2) UTI (urinary tract infection) (3) Nephrolithiasis Procedure Date: May 31, 2017 Supervising Radiologist: Damaso Hutchinson Estimated blood loss: 2cc Anesthesia: Local, Conscious Sedation Plan of Activity Patient to Unit: ROPU Patient Condition: Good Additional Comments: Right nephrostomy placed. 2 tubes present 4 Setswana goes to bladder, 8 iraqi is in collecting system. Full dictated report to follow. See PACS Report for procedural detail/treatment Damaso Hutchinson MD May 31, 2017 10:12
--- NOTE | 2017-05-31 10:52 | RADRPT ---
EXAM DATE/TIME: 05/31/2017 09:14 [place] COMPARISON: PERCUTANEOUS ANTEGRADE PYELO,RT, May 31, 2017, 0:00. INDICATIONS : Patient with a history of right renal calculi. MEDICAL HISTORY : UTI Rt renal stones SURGICAL HISTORY : None ENCOUNTER: Initial ACUITY: 3 months PAIN SCORE: 7/10 LOCATION: Right flank FLUORO TIME: 7.1 minutes IMAGE SERIES: 2 SEDATION TIME: 45 minutes CONTRAST: 25 cc Omnipaque (iohexol) 350 MEDICATION(S): 1.) 6 mg midazolam (Versed) IV 2.) 300 mcg fentanyl (Sublimaze) IV 3.) 500 mg levofloxacin (Levaquin) IV Intra-procedural antibiotics were given as prescribed above. DEVICE(S): 1.) 8 Trinidadian nephrostomy catheter 2.) 4FR Straight glide catheter PROCEDURE : 1. right percutaneous nephrostomy with 8 Trinidadian nephrostomy tube placement 2. Placement of a right ureteral stent. A 4 Trinidadian tube was advanced from the kidney down to the blad nic. The risks, benefits and alternatives to the procedure were explained and verbal and written consent w as obtained. The site was prepped in sterile fashion. Full sterile technique was used, including ca p, mask, sterile gloves and gown and a large sterile sheet. Hand hygiene and 2% chlorhexidine and/or betadine/alcohol prep was utilized per protocol for cutaneous antisepsis. The skin and subcutaneous tissues were infiltrated with local anesthetic solution. A suitable site above the large calculus filling the renal pelvis was identified. The skin was anesth etized with 10 cc 1% lidocaine. A 25 gauge needle was advanced to the skin and down to the stone. The collecting system was filled with approximately 5 cc of contrast. This was followed with a small olivia unt of air. A posterior midpole calyx was identified. The exam did demonstrate mild dilation of the c ollecting system posterior to the stone. There was a ureteral stent in place and passage of contrast down to the bladder. The skin above the posterior midpole calyx was anesthetized with 10 cc of 1% lidocaine. A small incis ion was made. A 22 gauge needle was advanced through the skin into the calyx without difficulty. A 0. 018 wire was passed into the renal pelvis. The needle was removed. A 3/4 dilator was advanced over th e wire. A 0.035 angled Glidewire was advanced to the dilator down to the bladder. A 6 Trinidadian sheath w as advanced over the wire. A second guidewire was advanced to the bladder. The sheath was removed. A 4 Trinidadian glide catheter was advanced over the first glide wire and position ed within the bladder. An 8 Trinidadian nephrostomy tube was advanced over the second guidewire and coiled within the collecting system. The patient tolerated the procedure well. The procedure was performed under conscious sedation by an independent drain radiology nurse. There was continuous monitoring of oxygen saturation EKG throughou t. For conscious sedation dosage please see nursing notes. CONCLUSION: 1. Uncomplicated placement of an 8 Trinidadian nephrostomy within the collecting system of the right kidne y. 2. Uncomplicated placement of a 4 Trinidadian nephroureteral tube running from the right back down to the bladder for access for percutaneous nephrolithotomy. Damaso Hutchinson MD on May 31, 2017 at 10:47 Board Certified Radiologist. This report was verified electronically.
[2017-05-31] MEDS ORDERED: LIDOCAINE HCL 5% PATCH T-DERMAL ONE (11:45)
[2017-05-31] MEDS ORDERED: ONDANSETRON HCL 4 MG/2 ML VIAL ONE (14:12)
[2017-05-31] MEDS ORDERED: oxyCODONE/ACETAMINOPHEN 5 MG/325 MG TAB PO ONE (14:15)
== END 2017-05-31 14:15 | disposition home or self-care (01) ==
LOC: HROP 07:19 → HRIP 07:20 → HROP 14:15
PROVIDERS: ATTEND Urology
DX: N20.0 Calculus of kidney (principal); N39.0 Urinary tract infection, site not specified
CPT/HCPCS: 50432; 50694; 85610; 85730; 99152; 99153; C1729; C1769; C1887; J1956; J2250; J2405; J3010; J7030; Q9967

== ENCOUNTER 2017-06-03 07:29 | Observation (INO) | payer MEDICAID ==
[~2017-06-03] VITALS: Ht 172.7 cm; Wt 64.8 kg
[2017-06-03] MEDS ORDERED: PERC5TAB12 PO ×2 (08:21→14:33)
[2017-06-03] MEDS ORDERED: CHLORHEXIDINE GLUCONATE 2 % 1 PACK (2 CLOTHS) TOPICAL PRN (08:30)
[2017-06-03] MEDS ORDERED: SODIUM CHLORID 0.9% 500 ML IV PRN (08:30)
[2017-06-03] MEDS ORDERED: METOPROLOL TARTRATE 25 MG TAB PO PRN (08:30)
[2017-06-03] MEDS ORDERED: INSULIN HUMAN REGULAR 1,000 UNITS/10 ML VIAL SQ PRN (08:30)
[2017-06-03] MEDS ORDERED: POVIDONE IODINE 5% (ANTISEPSIS KIT) 4 APPLICATIONS EACH NARE PRN (08:30)
[2017-06-03] MEDS ORDERED: LACTATED RINGER'S 1000 ML IV PRN (08:30)
[2017-06-03] MEDS ORDERED: FUROSEMIDE 40 MG/4 ML VIAL ONE (11:16)
[2017-06-03] MEDS ORDERED: ACETAMINOPHEN 1000 MG/100 ML 100 ML IV ONE (11:18)
[2017-06-03] MEDS ORDERED: LEVOFLOXACIN 500 MG PREMIX INJ 100 ML IV ONE (11:33)
[2017-06-03] MEDS ORDERED: NEOSTIGMINE 3 MG/3 ML SYR IV ONE (12:00)
[2017-06-03] MEDS ORDERED: ONDANSETRON HCL 4 MG/2 ML VIAL IV PUSH ONE (12:00)
[2017-06-03] MEDS ORDERED: LIDOCAINE HCL 1% PF 5 ML AMPULE OTHER ONE (12:00)
[2017-06-03] MEDS ORDERED: MORPHINE SULFATE 4 MG/ML INJ IV ONE (12:00)
[2017-06-03] MEDS ORDERED: PROPOFOL 200 MG/20 ML AMP IV ONE (12:00)
[2017-06-03] MEDS ORDERED: LACTATED RINGER'S 1000 ML INJ 1,000 ML IV ONE (12:00)
[2017-06-03] MEDS ORDERED: GLYCOPYRROLATE 1 MG/5 ML SYRINGE IV PUSH ONE (12:00)
[2017-06-03] MEDS ORDERED: IOHEXOL 300 MG/ML 100 ML BTL (for Rad CT) IVCONTRAST ONE (12:00)
[2017-06-03] MEDS ORDERED: ROCURONIUM INJ 50 MG/5 ML SYRINGE IV PUSH ONE (12:00)
[2017-06-03] MEDS ORDERED: PHENYLEPH/NS 1000 MCG/10 ML SYR IV ONE (12:00)
[2017-06-03] MEDS ORDERED: SODIUM CHLORIDE 0.9% 20 ML VIAL IV ONE (12:00)
[2017-06-03] MEDS ORDERED: DEXAMETHASONE SOD PHOS 4 MG/ML VIAL IV ONE (12:00)
[2017-06-03] MEDS ORDERED: MIDAZOLAM HCL 2 MG/2 ML VIAL IV ONE (12:00)
--- NOTE | 2017-06-03 14:32 | PD.OP ---
Operative Report Date of Surgery: Jun 03, 2017 Preoperative Diagnosis: (1) Renal calculus, right Postoperative Diagnosis: (1) Renal calculus, right Procedure: Right percutaneous nephrolithotomy, right nephrostogram, exchange of right ureteral stent and exchange of right nephrostomy tube Anesthesia: General Surgeon: Marko Moon [employer] Embroider[employer] Digitizer(s): None Operation and Findings: Indication for procedure: The case of a pleasant 21-year-old female with a large right renal pelvis calculus measuring in excess of 2 cm who presents today to undergo a right percutaneous nephrolithotomy. Patient had a right nephrostomy tube recently placed by interventional radiology. Operative procedure in detail: Patient was brought to the operating room suite and placed under general endotracheal anesthesia while still on stretcher. She was then repositioned onto the OR table in the prone position and all pressure points adequately padded. She was then prepped and draped in normal sterile fashion. After an appropriate timeout was undertaken I proceeded with performing a right nephrostogram via the recently placed pigtail nephrostomy tube to outline the collecting system. A sensor 0.035 wire was advanced down the nephrostomy tube down to the urinary bladder and the nephrostomy tubes up slowly withdrawn. There was a secondary open-ended catheter that was also recently placed by interventional radiology and this was removed after a second sensor wire was placed via this access. The nephrostomy tube site was extended with a #15 blade for a distance of approximately 1 cm to facilitate passage of the nephroscope sheath. A UroMax balloon dilation catheter was advanced over one of the wires with the tip just within the collecting system of the right kidney and the balloon inflated to 20 pipe of pressure. The nephroscope sheath was then passed over the balloon was also inflated and position verified with fluoroscopy. Once the sheath was in good position the balloon was deflated and the balloon catheter withdrawn. At this point I had the nephroscope sheath in good position along with 2 wires which advanced down into the urinary bladder. The wires were secured to a sterile drape with hemostat. The nephroscope was then utilized and the large right renal pelvis calculus was easily seen. Using the Espinela device I proceeded with lithotripsy of the stone under direct vision. Once the stone was fragmented and there fragments withdrawn I exchanged the nephroscope with a flexible cystoscope to check for any additional fragments within the proximal ureter and no significant size fragments were noted. The nephroscope was then reutilized and the previously placed ureteral stent was withdrawn using flexible forceps. I was then able to advance a [place] 24 cm 6 Welsh double-J stent over one of the wires under both direct vision and fluoroscopy. Once the stent was in good position the trailing string was removed. The nephroscope was withdrawn and an 8 Welsh pigtail nephrostomy tube was placed over the remaining wire and position verified under fluoroscopy. A nice coil was created within the right renal pelvis and the tethering line secured. A nephrostogram was then performed to verify proper placement. The nephrostomy tube was then secured to the skin surface with 2-0 nylon suture material 2. A sterile dressing was placed around the nephrostomy site and the tube placed to gravity drainage. The patient tolerated the procedures without complications and was transferred to the PACU in satisfactory condition. Marko Moon MD Jun 03, 2017 14:32
[2017-06-03] MEDS ORDERED: LEVA500T20 PO (14:33)
--- NOTE | 2017-06-03 14:41 | RADRPT ---
EXAM DATE/TIME: 06/03/2017 14:13 [facility] COMPARISON: No previous studies available for comparison. INDICATIONS : Right percutaneous nephrolithotomy. Right nephrogram. Exchange right nephrostomy tube. MEDICAL HISTORY : Renal calculi. SURGICAL HISTORY : Right nephrostomy tube. ENCOUNTER: Subsequent ACUITY: 1 day PAIN SCORE: Non-responsive. LOCATION: Right flank CONCLUSION: Fluoroscopic image demonstrates nephroureteral stent in the right kidney. Contrast throughout the rig ht collecting system. There appear to be a filling defects in the lower pole right kidney. Jag Rodriguez MD on June 03, 2017 at 14:38 Board Certified Radiologist. This report was verified electronically.
[2017-06-03] MEDS ORDERED: HYDROmorphone HCL PF 2 MG/ML VIAL IV PUSH PRN (14:45)
[2017-06-03] MEDS ORDERED: SODIUM CHLORIDE 0.9% FLUSH 10 ML FLUSH IV FLUSH PRN (14:45)
[2017-06-03] MEDS ORDERED: Post-op Orders (for Pharmacy) MISC XX ONE (14:45)
[2017-06-03] MEDS ORDERED: HYDROmorphone HCL PF 1 MG/ML VIAL IV PUSH PRN (14:45)
[2017-06-03] MEDS ORDERED: oxyCODONE/ACETAMINOPHEN 5 MG/325 MG TAB PO PRN (14:45)
[2017-06-03] MEDS ORDERED: ONDANSETRON HCL 4 MG/2 ML VIAL ONE (14:52)
[2017-06-03] MEDS: DEXT 5%-NACL 0.9% 1000 ML INJ 1,000 ML IV SCH ×2 (14:56→23:26)
[2017-06-03] MEDS: oxyCODONE/ACETAMINOPHEN 5 MG/325 MG TAB PO PRN (18:04)
[2017-06-03 20:00] VITALS: BP 109/54; PULSE 80; RESP 18; TEMP 98.9; O2SAT 96
[2017-06-03] MEDS: ONDANSETRON HCL 4 MG/2 ML VIAL IV PUSH PRN (20:43)
[2017-06-03] MEDS: SODIUM CHLORIDE 0.9% FLUSH 10 ML FLUSH IV FLUSH SCH (20:45)
[2017-06-04] VITALS: BP 98/46; PULSE 58; RESP 18; TEMP 99.2; O2SAT 96
[2017-06-04] MEDS: oxyCODONE/ACETAMINOPHEN 5 MG/325 MG TAB PO PRN ×2 (03:39→09:28)
[2017-06-04 04:11] VITALS: BP 98/46; PULSE 58; RESP 18; TEMP 99.2; O2SAT 96
--- NOTE | 2017-06-04 04:40 | RADRPT ---
EXAM DATE/TIME: 06/04/2017 04:11 [facility] COMPARISON: No previous studies available for comparison. INDICATIONS : Status post right percutaneous nephrolithotomy. MEDICAL HISTORY : Renal calculi. SURGICAL HISTORY : Right nephrostomy tube. ENCOUNTER: Subsequent ACUITY: 2 days PAIN SCORE: 10/10 LOCATION: Right flank. FINDINGS: The bowel gas pattern appears normal. No free air is identified. No organomegaly is evident. A double -J stent is present on the right in the expected position. Nephrostomy is also present. No renal ston es are identified. CONCLUSION: 1. No renal stones are identified. Juan A Oakes MD on June 04, 2017 at 4:38 Board Certified Radiologist. This report was verified electronically.
[2017-06-04 06:37] LABS: HEMATOCRIT 33.8 % (35.0-46.0); REVIEW FLAG FINAL
[2017-06-04 07:02] LABS: BICARBONATE 27.8 MEQ/L (21.0-32.0); POTASSIUM 3.8 MEQ/L (3.5-5.1)
[2017-06-04] MEDS: DEXT 5%-NACL 0.9% 1000 ML INJ 1,000 ML IV SCH (07:09)
[2017-06-04 08:00] VITALS: BP 104/41; PULSE 69; RESP 16; TEMP 96.8; O2SAT 99
[2017-06-04] MEDS: SODIUM CHLORIDE 0.9% FLUSH 10 ML FLUSH IV FLUSH SCH (09:00)
[2017-06-04] MEDS: ONDANSETRON HCL 4 MG/2 ML VIAL IV PUSH PRN (09:29)
[2017-06-04] MEDS ORDERED: INFLUENZA VIRUS VACCINE (QUADRIVALENT) 0.5 ML SYR IM ONE (10:00)
[2017-06-04 12:00] VITALS: BP 106/51; PULSE 68; RESP 16; TEMP 96.2; O2SAT 97
[2017-06-04] MEDS ORDERED: LEVOFLOXACIN 500 MG PREMIX INJ 100 ML IV SCH (12:00)
[2017-06-04] MEDS ORDERED: ZOFR4TAB3 SL (13:45)
--- NOTE | 2017-06-04 13:49 | HHI.DS ---
Discharge Summary Admission Date Jun 03, 2017 at 14:39 Discharge Date: Jun 04, 2017 Admitting Diagnosis (1) Renal calculus, right Diagnosis: Principal ICD Codes: N20.0 - Calculus of kidney Status: Acute Procedures On June 03 patient underwent a right percutaneous nephrolithotomy, right nephrostogram, exchange of right ureteral stent and exchange of right nephrostomy tube Brief History 21-year-old female with a larger than 2 cm right renal pelvis calculus is admitted for definitive management with a percutaneous nephrolithotomy. Please refer to admission history and physical for additional history and pertinent physical findings. CBC/BMP: 06/04/17 0600 06/04/17 0600 Significant Findings Laboratory Tests Test 06/04/17 06:00 Hemoglobin 11.1 GM/DL (11.6-15.3) Hematocrit 33.8 % (35.0-46.0) Chloride Level 108 MEQ/L (98-107) Imaging Postoperative KUB demonstrated complete resolution of the right renal calculus. PE at Discharge Abdomen soft, nondistended, nontender Right nephrostomy tube draining clear yellow urine Rosenberg catheter draining clear yellow urine Transfer Summary Patient was admitted on June 03, 2017 and underwent a right percutaneous nephrolithotomy. The procedure went well without complications. Patient had an unremarkable postop course and by postoperative day #1 was ambulating well, tolerating oral intake well and anxious to go home. Vital signs were stable. Pt Condition on Discharge: Good Discharge Disposition: Discharge Home Discharge Instructions DIET: Follow Instructions for: As Tolerated, No Restrictions Activities you can perform: Regular-No Restrictions Marko Moon MD Jun 04, 2017 13:49
[2017-06-04] MEDS ORDERED: ONDANSETRON ODT 4 MG TAB SL PRN (14:00)
[2017-06-05] MEDS ORDERED: LEVOFLOXACIN 500 MG TAB PO SCH (09:00)
== END 2017-06-04 15:56 | disposition home or self-care (01) ==
LOC: HSDC 07:29 → N07A 14:39
PROVIDERS: ADMIT Urology; ATTEND Urology
DX: N20.0 Calculus of kidney (principal)
CPT/HCPCS: 00860; 00862; 50081; 50435; 74000; 76000; 80048; 82365; 82370; 85014; 85018; 88300; 94150; 96361; 96374; 96376; 99285; C1726; C1769; G0378; J0131; J1100; J1956; J2250; J2270; J2370; J2405; J2710; J3010; J7042; J7120; Q9967; J1940